=== PATIENT | male | born 1985 | race Caucasian/White ===

== ENCOUNTER 2017-09-26 16:37 | Emergency (ER) | payer SELFPAY ==
[2017-09-26] MEDS ORDERED: DEXAMETHASONE 4 MG/ML VIAL IVP ONE (16:55)
[2017-09-26] MEDS ORDERED: KETOROLAC 15 MG/1 ML SDV IVP ONE (16:55)
[2017-09-26] MEDS ORDERED: LIDOCAINE 5% 1 EA PATCH TD ONE ×2 (16:55→17:15)
--- NOTE | 2017-09-26 16:55 | EDPHY ---
H & P Time Seen by Provider: 09/26/17 16:46 HPI/ROS: CHIEF COMPLAINT: Acute back pain HISTORY OF PRESENT ILLNESS: 31-year-old male arrives via ambulance complaining of acute right paraspinous thoracic pain described as a muscular spasm like pain. He was lying in bed, got up and stretched and felt immediate pain described as spasm like sensation his right thoracic paraspinous region. The pain is reproducible with range of motion. Nonpleuritic. Non constant. No chest pain. No dyspnea. No radiation. No peripheral paresthesia, weakness, numbness. No incontinence no retention. No lower extremity radiculopathy or complaints. REVIEW OF SYSTEMS: A ten point review of systems was performed and is negative with the exception of the items mentioned in the HPI PAST MEDICAL & SURGICAL HISTORY: No pertinent medical or surgical history SOCIAL HISTORY: Nonsmoker PHYSICAL EXAM (Prior to examination, patient consented to physical exam, hands were washed and my usual and customary physical exam procedures followed) 1) GENERAL: [Well-developed, well-nourished, alert and oriented. Appears to be in no acute distress long as he is laying supine, however soon as he sits up rolls over he complains of exquisite reproducible pain. 2) HEAD: Normocephalic, atraumatic 3) HEENT: Pupils equal, round, reactive to light bilaterally. Sclera anicteric. Nasopharynx, oropharynx, clear, no lesions. 4) NECK: Full range of motion, no meningeal signs. 5) LUNGS: Clear auscultation bilaterally, no wheezes, no rhonchi, no retractions. 6) HEART: Regular rate and rhythm, no murmur, no heave, no gallop. 7) ABDOMEN: No guarding, no rebound, no focal tenderness, negative McBurney's, negative Watts's, negative Rovsing's, negative peritoneal sign, 8) MUSCULOSKELETAL: Moving all extremities, no focal areas of tenderness, no obvious trauma. No peripheral edema or discoloration. 9) BACK: tender to palpation paraspinous right thoracic muscle. No CVA tenderness, no midline vertebral tenderness, no fluctuance, no step-off, no obvious trauma, no visual or palpable abnormality. Patella, Achilles reflexes intact to bilateral strength 5/5 10) SKIN: No rash, no petechiae. 11) NEURO: Awake, alert, and oriented to person, place and time. Answers questions appropriately. There were no obvious focal neurologic abnormalities. No cerebellar dysfunction. Normal steady gait. Upper and lower extremities bilaterally with strength 5 / 5, reflexes 2+.. DIFFERENTIAL DIAGNOSIS: In no particular order, including but not limited to, fracture, sprain/strain, cauda equina, spinal infectious etiology. MEDICAL DECISION MAKING Lower index of suspicion for pneumothorax, aortic dissection, cauda equina, epidural abscess, epidural hematoma, lumbar myositis, diskitis, as the patient is neurologically intact in the lower extremities, has patella and Achilles reflexes intact and equal bilaterally, has no neurologic deficits, no incontinence, no retention, no midline pain, no fluctuance, afebrile, no flulike symptoms. Pain may be secondary to muscular strain, may be secondary to discogenic etiology. At this point I do not identify definitive indication for emergent MRI or x-ray the has no midline pain, however patient may necessitate this on an outpatient basis. Plan will be symptomatic/supportive care and discharge. Patient given acute back pain precautions. Patient verbalizes understanding of discharge instructions. I believe them be competent decision-makers. All questions and concerns have been addressed by me. Ample opportunity for questions have been provided . The patient understands that this diagnosis is provisional and can never be 100% accurate. Usual and customary warnings were given concerning the clinical impression and all the patient's questions were answered. The patient was instructed to return to the emergency department should her symptoms worsen or return, or develop any new symptoms, otherwise to followup as directed in discharge instructions. (Lois Mckeon) Constitutional: Initial Vital Signs Temperature (C) 36.7 C 09/26/17 16:37 Heart Rate 74 09/26/17 16:37 Respiratory Rate 16 09/26/17 16:37 Blood Pressure 115/71 09/26/17 16:37 O2 Sat (%) 98 09/26/17 16:37 O2 Delivery Mode Room Air Allergies/Adverse Reactions: No Known Allergies Allergy (Unverified 09/26/17 16:46) Home Medications: Medication Instructions Recorded Cyclobenzaprine [Flexeril 10 MG 10 mg PO TID #15 tab 09/26/17 (RX)] Lidocaine 5% [Lidoderm 5% Patch 1 ea TD BID #30 patch 09/26/17 (*)] Medical Decision Making ED Course/Re-evaluation: The patient was evaluated and managed by the physician's quality control assistant. My cosignature indicates that I reviewed the chart and I agree with the findings and plan of care as documented. I am the secondary supervising physician. ( Carmela Joya) - Data Points Medications Given: Miscellaneous Information (Patch Removal) 1 ea TD [id number] FELIPE Stop: 03/25/18 20:59 Last Admin: 09/26/17 17:21 Dose: Not Given Discontinued Medications Ketorolac Tromethamine (Toradol) 15 mg IVP EDNOW ONE Stop: 09/26/17 16:56 Last Admin: 09/26/17 17:03 Dose: 15 mg Lidocaine (Lidoderm 5%) 1 ea TD EDNOW ONE Stop: 09/26/17 16:56 Last Admin: 09/26/17 17:05 Dose: 1 ea Departure - Departure Disposition: Home, Routine, Self-Care Clinical Impression: Acute thoracic back pain Qualifiers: Back pain laterality: right Qualified Code(s): M54.6 - Pain in thoracic spine Condition: Good Instructions: Back Pain (ED) Additional Instructions: Seek medical attention if you develop new or worsening pain, if you develop shortness of breath, chest pain, dizziness, if you develop bladder or bowel dysfunction, numbness around your perineum, foot drop, or any other symptoms that concern you. Referrals: Chandler Vora [Doctor of Osteopathy] - 2-3 days, if not improved Prescriptions: Cyclobenzaprine [Flexeril 10 MG (RX)] 10 mg PO TID #15 tab Lidocaine 5% [Lidoderm 5% Patch (*)] 1 ea TD BID #30 patch
[2017-09-26] MEDS ORDERED: CYCLOBENZAPRINE 10 MG TAB PO ONE (18:11)
[2017-09-26] MEDS ORDERED: KETAMINE 500 MG/10 ML VIAL NASAL ONE (18:40)
[2017-09-26 19:22] VITALS: BP 121/79; PULSE 74; RESP 20; TEMP 98.1; O2SAT 98
[2017-09-26] MEDS ORDERED: CYCLOBENZAPRINE 10MG PREPACK#3 BTL TAKEHOME ONE ×2 (19:30→19:31)
[2017-09-26] MEDS ORDERED: PATCH REMOVAL 1 EA PATCH TD SCH (21:00)
== END 2017-09-26 19:46 | disposition home or self-care (01) ==
DX: M54.6 Pain in thoracic spine (principal)
CPT/HCPCS: 96374; J1885